=== PATIENT | male | born 1960 | race Caucasian/White ===

== ENCOUNTER 2016-11-08 20:36 | Inpatient (IN) | payer BC, SELFPAY ==
[~2016-11-08] VITALS: Ht 185.4 cm; Wt 91.3 kg
[~2016-11-08 20:36] MED LIST: no historical meds
[2016-11-08 21:17] LABS: MEAN CORPUSCULAR HEMOGLOBIN 32.9 pg (27.0-33.0); MEAN CORPUSCULAR HGB CONC 34.5 g/dl (32.0-36.5); MEAN CORPUSCULAR VOLUME 95.3 fl (80.0-96.0); RED CELL DISTRIBUTION WIDTH 12.4 % (11.5-14.5); WHITE BLOOD COUNT 6.6 K/mm3 (4.0-10.0)
[2016-11-08 21:43] LABS: METHADONE URINE NEGATIVE (NEGATIVE)
[2016-11-08 21:50] LABS: ALBUMIN/GLOBULIN RATIO 1.38 (1.00-1.93); ALKALINE PHOSPHATASE 71 U/L (45-117); ALT/SGPT 18 U/L (12-78); ANION GAP 11 MEQ/L (8-16); AST/SGOT 8 U/L (15-37); BILIRUBIN,DIRECT < 0.1 MG/DL (0.0-0.2); BILIRUBIN,TOTAL 0.3 MG/DL (0.2-1.0); BLOOD UREA NITROGEN 9 MG/DL (7-18); CALCIUM LEVEL 8.4 MG/DL (8.5-10.1); CARBON DIOXIDE LEVEL 22 MEQ/L (21-32); CHLORIDE LEVEL 112 MEQ/L (98-107); CREATININE FOR GFR 1.01 MG/DL (0.70-1.30); GLOMERULAR FILTRATION RATE > 60.0 (>56); GLUCOSE, FASTING 94 MG/DL (70-105); POTASSIUM SERUM 3.8 MEQ/L (3.5-5.1); SODIUM LEVEL 145 MEQ/L (136-145); TOTAL PROTEIN 6.9 GM/DL (6.4-8.2)
[2016-11-08] MEDS ORDERED: MOM 30ML SUSPENSION UDC PO PRN (23:30)
[2016-11-08] MEDS ORDERED: ACETAMINOPHEN TAB 650MG DOSE (2X325MG) PO PRN (23:30)
[2016-11-08] MEDS ORDERED: traZODone 50 MG TAB PO PRN (23:30)
[2016-11-08] MEDS ORDERED: MAALOX 30 ML SUSP *UDC PO PRN (23:30)
[2016-11-09 06:23] VITALS: BP 115/68
[2016-11-09 09:00] VITALS: BP 115/68
[2016-11-09] MEDS ORDERED: MULTIVITAMINS/MINERALS THERAP 1 TAB PO SCH (09:00)
[2016-11-09] MEDS ORDERED: cloNIDine 0.1 MG TAB PO SCH (09:00)
[2016-11-09] MEDS ORDERED: FOLIC ACID 1 MG TAB PO SCH (09:00)
[2016-11-09] MEDS ORDERED: THIAMINE 100 MG TAB PO SCH (09:00)
--- NOTE | 2016-11-09 09:54 | HPEPDOC ---
Medical History and Physical Date of Admission Nov 08, 2016 at 23:16 History and Physical PCP: Ela Ewing NP ATTENDING: Dr. Lexx Rivera HPI: 56 yo M admitted to [facility] for unspecified depressive disorder, being medically examined today. Patient declines to participate with history of physical exam at this time. History is taken from the chart. PMHx: Anxiety Depression History of alcohol use Tobacco use Hypertension PSHX: Left radius fracture/ORIF Carpal tunnel release left 11/23 SOCHX: Resides in: [facility] Marital Status: Significant other Kids: 3 Employment: freight delivery driver Tobacco use: One pack per day ETOH: History of alcohol use, at least 6 days prior to admission per records. Illicit Drugs: Denies IV Drug Use: Denies Tattoos done unprofessionally: Denies FAMHX: Mother: Alive, well Father: Alive, CAD/CABG Siblings: Alive, well Children: Alive, well ROS: Patient declines to provide history at this time. PE: Patient declines to produce pain with physical examination at this time. EKG: pending. A&P: 56 yo M admitted to [facility] for unspecified depressive disorder, 1. Psych. Plan per Psychiatry. Obtain baseline EKG to assure the safety of psychiatric medications as they can prolong the QT interval. 2. Nicotine dependence. Patch available. 3. History of hypertension. Patient does not take medication as outpatient. Blood pressure is noted to be 115/68. Monitor. 4. Follow up with PCP on discharge. 5. Substance use. Withdrawal per psychiatry. Continue with MVI, Thiamine, and Folic Acid supplementation. 6. Staff member Dashawn patel. Vital Signs Vital Signs Date Time Temp Pulse Resp B/P (MAP) Pulse Ox O2 Delivery O2 Flow Rate FiO2 11/09/16 06:23 98.0 80 20 115/68 (84) 11/09/16 02:19 95 Room Air Laboratory Data Labs 24H Laboratory Tests 2 11/08/16 20:51: Anion Gap 11, Glomerular Filtration Rate > 60.0, Calcium Level 8.4L, Aspartate Amino Transf (AST/SGOT) 8L, Alanine Aminotransferase (ALT/SGPT) 18, Alkaline Phosphatase 71, Total Bilirubin 0.3, Direct Bilirubin < 0.1, Total Protein 6.9, Albumin 4.0, Albumin/Globulin Ratio 1.38, Thyroid Stimulating Hormone (TSH) 1.130, Salicylates Level 3.9L, Urine Amphetamines Screen NEGATIVE, Urine Benzodiazepines Screen NEGATIVE, Urine Opiates Screen NEGATIVE, Urine Methadone Screen NEGATIVE, Acetaminophen Level < 2.0L, Urine Barbiturates Screen NEGATIVE , Urine Phencyclidine Screen NEGATIVE, Urine Cocaine Metabolite Screen NEGATIVE , Urine Cannabinoids Screen NEGATIVE, Ethyl Alcohol Level 0.084H CBC/BMP Laboratory Tests 11/08/16 20:51 Red Blood Count 4.53, Mean Corpuscular Volume 95.3, Mean Corpuscular Hemoglobin 32.9, Mean Corpuscular Hemoglobin Concent 34.5, Red Cell Distribution Width 12.4 Home Medications No Active Prescriptions or Reported Meds Allergies Coded Allergies: No Known Drug Allergy (Verified Allergy, Unknown, 06/16/12) Irma Palomino Nov 09, 2016 09:54
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
[2016-11-09] MEDS ORDERED: THIA100TA PO (12:55)
[2016-11-09] MEDS ORDERED: TRAZO50TA PO (12:55)
[2016-11-09] MEDS ORDERED: FOLI1TAB4 PO (12:55)
[2016-11-09] MEDS ORDERED: VITMTA PO (12:55)
== END 2016-11-09 13:58 | disposition home or self-care (01) | DRG 754 ==
LOC: M ED 20:36 → M ED INP 23:16 → M PSY 11-09 02:25
PROVIDERS: ADMIT Psychiatry & Neurology Psychiatry; ATTEND Psychiatry & Neurology Psychiatry
DX: F32.9 Major depressive disorder, single episode, unspecified (principal); I10 Essential (primary) hypertension; R45.851 Suicidal ideations; F10.10 Alcohol abuse, uncomplicated; F17.210 Nicotine dependence, cigarettes, uncomplicated; Z79.899 Other long term (current) drug therapy

== ENCOUNTER 2019-04-13 12:00 | Emergency (ER) | payer SELFPAY ==
[~2019-04-13] VITALS: Ht 177.8 cm; Wt 106.7 kg
[~2019-04-13 12:00] MED LIST changes: +FOLI1TAB11 PO; +THIA100TA PO; +TRAZ1TAB10 PO; +VITMTA PO
[2019-04-13] MEDS ORDERED: IBUP80TA (12:09)
--- NOTE | 2019-04-13 15:12 | REP ---
Lumbar spine series: Five views. History: Injury in a fall. Vertebral point tenderness. Findings: Lumbar vertebral body heights are preserved. No lumbar spine fracture or collapse is seen. Degenerative spondylosis changes are noted. Vascular calcification is visible. Psoas margins are symmetric. Sacrum and SI joints appear intact. There is a transitional lumbosacral junction. Bowel gas pattern is normal. Impression: Degenerative spondylosis changes. No lumbar spine fracture seen. Electronically Signed by Pedro Luis Alfred MD 04/13/2019 03:22 P
--- NOTE | 2019-04-13 15:13 | REP ---
UNILATERAL RIGHT-SIDED RIB SERIES: Five views including PA chest. HISTORY: Injury in a fall. Right posterior rib tenderness. Comparison chest x-ray: March 24, 2012. FINDINGS: Upright chest radiograph is normal. There is no evidence of pneumothorax or hydrothorax. Mediastinum is not widened. The aorta is somewhat tortuous. Heart is not enlarged. Lung ramos are clear. There are somewhat displaced posterior rib fractures on the right including rib numbers 8, 9, 10, and possibly 7 and 11. No other abnormality. IMPRESSION: Right posterior rib fractures, 8-10. Possible fractures of the adjacent 7th and 11th posterior ribs as well. There is no evidence of pneumothorax or pulmonary contusion. Electronically Signed by Pedro Luis Alfred MD 04/13/2019 03:22 P
--- NOTE | 2019-04-13 15:14 | REP ---
Thoracic spine series: Three views. History: Injury in a fall. Vertebral point tenderness. Findings: Thoracic vertebral body heights are preserved. There is discogenic spurring at each thoracic level to some degree most pronounced in the mid thoracic spine. Pedicles and posterior elements appear intact. No paravertebral soft-tissue swelling is seen. The thoracic aorta is somewhat tortuous. There are posterior right-sided rib fractures visible incidentally on the lateral radiograph. Swimmers lateral view shows degenerative disc disease in the cervical spine. Impression: No thoracic spine fracture is visible . Right posterior rib fractures. Electronically Signed by Pedro Luis Alfred MD 04/13/2019 03:22 P
[2019-04-13 15:25] VITALS: BP 127/91
[2019-04-13] MEDS ORDERED: PERC5TAB12 PO (15:28)
== END 2019-04-13 15:34 | disposition home or self-care (01) ==
LOC: M ED 12:00
DX: S22.41XA Multiple fractures of ribs, right side, initial encounter for closed fracture (principal); W00.0XXA Fall on same level due to ice and snow, initial encounter; Y92.9 Unspecified place or not applicable; M47.817 Spondylosis without myelopathy or radiculopathy, lumbosacral region; I10 Essential (primary) hypertension; K21.9 Gastro-esophageal reflux disease without esophagitis; F17.210 Nicotine dependence, cigarettes, uncomplicated

== ENCOUNTER 2020-07-31 16:03 | Emergency (ER) | payer SELFPAY ==
[~2020-07-31] VITALS: Ht 177.8 cm; Wt 106.5 kg
[~2020-07-31 16:03] MED LIST changes: +IBUP80TA; +PERC5TAB12 PO
[2020-07-31] MEDS ORDERED: LORazepam 2 MG/ML VIAL IM ONE (16:35)
[2020-07-31] MEDS ORDERED: diphenhydrAMINE 50MG/ML VIAL (J1200) IM ONE (16:35)
[2020-07-31] MEDS ORDERED: HALOPERIDOL 5MG/ML VIAL (J1630 PER 1) IM ONE (16:35)
[2020-07-31 17:00] LABS: HEMATOCRIT 44.2 % (42.0-52.0); HEMOGLOBIN 14.9 g/dl (13.5-17.5); MEAN CORPUSCULAR HEMOGLOBIN 32.3 pg (27.0-33.0); MEAN CORPUSCULAR HGB CONC 33.7 g/dl (32.0-36.5); MEAN CORPUSCULAR VOLUME 95.9 fl (80.0-96.0); PLATELET COUNT, AUTOMATED 277 10^3/uL (150-450); RED BLOOD COUNT 4.61 10^6/uL (4.30-6.10); WHITE BLOOD COUNT 8.2 10^3/uL (4.0-10.0)
[2020-07-31 17:22] LABS: AMPHETAMINES LEVEL URINE NEGATIVE (NEGATIVE); BARBITURATES URINE NEGATIVE (NEGATIVE); BENZODIAZEPINES URINE NEGATIVE (NEGATIVE); CANNABINOIDS URINE NEGATIVE (NEGATIVE); COCAINE METABOLITE URINE NEGATIVE (NEGATIVE); METHADONE URINE NEGATIVE (NEGATIVE); OPIATES URINE NEGATIVE (NEGATIVE); PHENCYCLIDINE URINE NEGATIVE (NEGATIVE)
[2020-07-31 18:07] LABS: ACETAMINOPHEN LEVEL < 2.0 UG/ML (10.0-30.0); ALBUMIN 4.1 GM/DL (3.2-5.2); ALT/SGPT 20 U/L (12-78); BILIRUBIN,DIRECT 0.2 MG/DL (0.0-0.2); BILIRUBIN,TOTAL 0.3 MG/DL (0.2-1.0); BLOOD UREA NITROGEN 10 MG/DL (7-18); CALCIUM LEVEL 8.5 MG/DL (8.8-10.2); CARBON DIOXIDE LEVEL 25 MEQ/L (21-32); CHLORIDE LEVEL 111 MEQ/L (98-107); CREATININE FOR GFR 0.99 MG/DL (0.70-1.30); ETHYL ALCOHOL (ETHANOL) 0.176 % (0.000-0.010); GLOMERULAR FILTRATION RATE > 60.0 (>49); GLUCOSE, FASTING 82 MG/DL (70-100); POTASSIUM SERUM 3.9 MEQ/L (3.5-5.1); SALICYLATE LEVEL 4.1 MG/DL (5.0-30.0); SODIUM LEVEL 143 MEQ/L (136-145); TOTAL PROTEIN 7.1 GM/DL (6.4-8.2)
[2020-08-01] MEDS ORDERED: LORazepam 2 MG TAB PO STA (07:21)
[2020-08-01] MEDS ORDERED: OLANZapine ORAL DISINTEGRATING TAB 5MG PO ONE (07:25)
[2020-08-01 11:29] VITALS: BP 142/67
== END 2020-08-01 11:31 | disposition home or self-care (01) ==
LOC: M ED 16:03
DX: F10.129 Alcohol abuse with intoxication, unspecified (principal); R45.1 Restlessness and agitation; I10 Essential (primary) hypertension; F17.200 Nicotine dependence, unspecified, uncomplicated
CPT/HCPCS: 36415; 80048; 80076; 80143; 80307; 82077; 84443; 85027; 96372; 99285; J1200; J1630; J2060

== ENCOUNTER → 2021-05-29 | Outpatient (CLI) | payer MEDICAID | LOC: M WUC 11:44 | PROVIDERS: ATTEND Physician Assistant | DX: M25.532 Pain in left wrist (principal) ==

== ENCOUNTER → 2021-06-06 | Outpatient (CLI) | payer MEDICAID | LOC: M RAD 09:25 | PROVIDERS: ATTEND Physician Assistant | DX: Z12.2 Encounter for screening for malignant neoplasm of respiratory organs (principal); F17.210 Nicotine dependence, cigarettes, uncomplicated; S22.31XS Fracture of one rib, right side, sequela ==

== ENCOUNTER → 2021-12-22 | Outpatient (CLI) | payer OTHER | LOC: M RAD 08:18 | PROVIDERS: ATTEND Internal Medicine Pulmonary Disease | DX: R91.1 Solitary pulmonary nodule (principal) ==

== ENCOUNTER → 2022-08-23 | Outpatient (CLI) | payer OTHER | LOC: M PLAIMG 08-14 08:40 → M RAD 08:08 | PROVIDERS: ATTEND Internal Medicine Pulmonary Disease | DX: R91.8 Other nonspecific abnormal finding of lung field (principal) ==

== ENCOUNTER → 2023-04-01 | Outpatient (CLI) | payer OTHER | LOC: M RAD 08:07 | PROVIDERS: ATTEND Internal Medicine Pulmonary Disease | DX: R91.8 Other nonspecific abnormal finding of lung field (principal) ==

== ENCOUNTER → 2024-04-22 | Outpatient (CLI) | payer MEDICARE | LOC: M RAD 08:54 | PROVIDERS: ATTEND Internal Medicine Pulmonary Disease | DX: R91.8 Other nonspecific abnormal finding of lung field (principal); I25.10 Atherosclerotic heart disease of native coronary artery without angina pectoris; I25.84 Coronary atherosclerosis due to calcified coronary lesion; K76.89 Other specified diseases of liver ==